=== PATIENT | female | born 1975 | race Caucasian/White ===

== ENCOUNTER 2016-12-28 21:49 | Emergency (ER) | payer OTHER ==
--- NOTE | 2016-12-28 22:13 | ED Physician Documentation ---
General Adult - HISTORIAN Historian: patient - HPI Stated Complaint: hx depression, ? suicidal Chief Complaint: General Adult Onset: hours Timing: gone now Severity: mild Further Comments: yes (Pt is a 41 yo female with hx depression, who was brought to ER after law enforcement received a phone call stating that the pt had threatened suicide via text message from the calling family member. Police and EMT's arrived to find pt alert and oriented and denying that she had attempted suicide and that she she sent the text message in anger, and was not planning suicide. See progress note.) - ROS CONST: no problems EYES/ENT: none CVS/RESP: none GI/: none MS/SKIN/LYMPH: none NEURO/PSYCH: other (anger, hx depression) - PAST HX Past History: other (depression/anxiety) Allergies/Adverse Reactions: Allergies Allergy/AdvReac Type Severity Reaction Status Date / Time No Known Allergies Allergy Verified 12/28/16 22:12 Home Medications: Ambulatory Orders Medication Instructions Recorded Clonidine HCl [Catapres] 0.1 mg PO QDAY 12/28/16 Dextroamphetamine/Amphetamine 1 tab PO QDAY 12/28/16 [Adderall 20 mg Tablet] Gabapentin [Neurontin] 1 cap PO TID 12/28/16 Lorazepam [Ativan] 1 mg PO QID PRN 12/28/16 - SOCIAL HX Smoking History: non-smoker Alcohol Use: rarely Drug Use: none - FAMILY HX Family History: No - REVIEWED ASSESSMENTS Nursing Assessment Reviewed: Yes Vitals Reviewed: Yes Progress - Progress Progress: Pt states that she threatened suicide to a family member in a text message because she was angry. She states that she does not wish to harm herself or others and says that she regrets having sent the message. Pt has had hx depression/anxiety for which she takes medications, including Buproprion and Ativan, and has hx of one suicide attempt 2 and 1/2 years ago. Pt denies the use of recreational drugs and states that she uses alcohol only rarely. Pt has a therapist that she sees weekly and is also involved in group therapy sessions that also meet weekly, the next meeting is the day after tomorrow. Pt exercises daily. She appears alert and oriented. She does not have a depressed affect. General Adult Physical Exam - PHYSICAL EXAM GENERAL APPEARANCE: mild distress EENT: eye inspection normal NECK: normal inspection, supple RESPIRATORY: no resp distress, chest non-tender, breath sounds normal CVS: reg rate & rhythm, heart sounds normal BACK: normal inspection EXTREMITIES: non-tender, normal range of motion, no evidence of injury NEURO: oriented X3, CN's nml as tested, motor nml, sensation nml Discharge Clincal Impression: Anger reaction, hx depression/anxiety Referrals: Natalia Marks MD [Primary Care Provider] - Home Medications: Ambulatory Orders Clonidine HCl [Catapres] 0.1 mg PO QDAY 12/28/16 Dextroamphetamine/Amphetamine [Adderall 20 mg Tablet] 1 tab PO QDAY 12/28/16 Gabapentin [Neurontin] 1 cap PO TID 12/28/16 Lorazepam [Ativan] 1 mg PO QID PRN 12/28/16 Condition: Good Disposition: 01 HOME, SELF-CARE Decision to Admit: NO Decision Time: 22:13
[2016-12-28 23:40] VITALS: BP 107/63
== END 2016-12-28 22:40 | disposition home or self-care (01) ==
LOC: ED 21:49
DX: F41.1 Generalized anxiety disorder (principal)
CPT/HCPCS: 99282; 99283